=== PATIENT | female | born 1960 | race African-American/Black ===

== ENCOUNTER 2023-12-30 10:42 | Outpatient (AMB) | payer BC, SELFPAY ==
[2023-12-30 11:02] VITALS: BP 128/84; PULSE 68; TEMP 36.7; O2SAT 98; BMI 32.4
--- NOTE | 2023-12-30 11:02 | MHC.OFFWIV ---
Intake Vital Signs 12/30/23 11:02 Height 5 ft 7 in Weight 207 lb BMI 32.4 BP 128/84 Blood Pressure Location Lt brachial Position Sitting Pulse 68 Pulse Source Pulse Oximeter Temp 98.1 F Temp Source Oral Pulse Oximetry (%) 98 Oxygen Delivery Method Room Air Intake Visit Reasons: [employer] Rash on ankles Intake Note: pt c/o rash on ankles. Ongoing for months. No improvement Patient Tobacco Use Status: Never used Tobacco Allergies No Known Allergies Allergy (Verified 12/30/23 11:09) Do you need a note to return to daycare/school/sports/work: No HPI HPI Comments History of Present Illness Details Patient is a 63-year-old female complaining a wound for 3 months on her right lower leg just above her ankle. She states it has been the same size 3 months. She is not quite sure how it started. She has been applying tea tree oil 2 it. She has similar wounds around it which she states are in different stages of healing and she is not as concerned about those. She states this particular 1 is just not healing. She states she is a diabetic and keeps her blood sugar under good control. [facility] Social History Patient Tobacco Use Status: Never used Tobacco Review of Systems Const All systems reviewed & are unremarkable except as noted in HPI and below Physical Exam Vital Signs: Last Vital Signs Temp 98.1 F 12/30/23 11:02 Pulse 68 12/30/23 11:02 BP 128/84 12/30/23 11:02 Pulse Ox 98 12/30/23 11:02 Oxygen Delivery Method Room Air 12/30/23 11:02 BMI result Body Mass Index 32.4 Const General: cooperative, healthy appearing, comfortable and no acute distress Orientation/consciousness: patient oriented x3 Limitations: no limitations HEENT Head: Yes normal to inspection Eyes General: appearance normal, both eyes and all related structures Resp Effort & Inspection: normal respiratory effort and able to speak in complete sentences Skin Other: Right lower extremity posterior distal tib/fib 1 cm round, indurated wound with hardened white center (likely from tea tree oil), no surrounding erythema, no warmth no other signs of infection noted, no weeping. Similar smaller wounds in the same general area Neuro General: patient oriented x3 Assessment & Plan Assessment & Plan (1) Non-healing wound of right lower extremity: Code(s): S81.801A - Unspecified open wound, right lower leg, initial encounter Plan: Recommended applying Aquaphor twice daily, keeping blood sugars in good control and following up with PCP for referral to Dermatology. Plan See above Coding Level of Care Code New Pt Level 3 (11326) Diagnoses Non-healing wound of right lower extremity S81.801A
== END 2023-12-30 11:47 | disposition home or self-care (01) ==
PROVIDERS: PCP Internal Medicine; Visit Provider Physician Assistant
DX: S81.801A Unspecified open wound, right lower leg, initial encounter (principal)
CPT/HCPCS: 99203